=== PATIENT | male | born 1965 | race Caucasian/White ===

== ENCOUNTER 2022-06-25 15:01 | Emergency (ER) | payer OTHER ==
[2022-06-25] MEDS ORDERED: Aspirin 81 MG Tab.Chew ONE (15:15)
[2022-06-25] MEDS ORDERED: Nitroglycerin 0.4 MG Tab.SL ONE ×2 (15:15→15:27)
[2022-06-25] MEDS ORDERED: Ticagrelor 90 MG Tab PO ONE ×2 (15:15→15:32)
[2022-06-25] MEDS ORDERED: Heparin Sodium 5,000 Units/ML Vial ONE (15:15)
[2022-06-25] MEDS ORDERED: Heparin Sodium 5,000 Units/ML Vial IVPUSH ONE (15:32)
[2022-06-25] MEDS ORDERED: Aspirin 81 MG Tab.Chew PO ONE (15:32)
[2022-06-25 15:48] LABS: ANION GAP 15.4 mmol/L (5-15); CHLORIDE,CL 104 mmol/L (98-107); ESTIMATED GFR 64 mL/min (>=60); SODIUM,NA 139 mmol/L (136-145)
[2022-06-25 15:53] LABS: PTT,PARTIAL THROMBOPLSTIN TIME 22.5 SEC (20.5-30.9)
== END 2022-06-25 15:26 | disposition short-term general hospital (02) ==
LOC: VM.ED 15:01
DX: I21.4 Non-ST elevation (NSTEMI) myocardial infarction (principal)
CPT/HCPCS: 80053; 82550; 84484; 85025; 85610; 85730; 93005; 99285; A9270; J1644; 36415

== ENCOUNTER 2025-05-07 11:00 | Emergency (ER) | payer OTHER ==
[2025-05-07] MEDS: Diphtheria,Pertussis(Acell),Tetanus Vaccine 0.5 ML Syringe IM ONE (11:19)
[2025-05-07 12:08] VITALS: BP 115/69; PULSE 85
== END 2025-05-07 11:57 | disposition home or self-care (01) ==
LOC: VM.ED 11:00
DX: S61.012A Laceration without foreign body of left thumb without damage to nail, initial encounter (principal); Z23 Encounter for immunization; W23.0XXA Caught, crushed, jammed, or pinched between moving objects, initial encounter
CPT/HCPCS: 12001; 90471; 90715; 99282-25; 99283; J2003